=== PATIENT | female | born 1945 | race Caucasian/White ===

== ENCOUNTER 2019-08-20 05:50 | Day surgery (SDC) | payer OTHER ==
[~2019-08-20 05:50] MED LIST: CHILDREN'S ASPI81 MG PO; FOLIC PO; FORTAMET500 MG PO; GABAPENTIN400 MG PO; HUMULIN; VASOTEC10 MG PO
[2019-08-20] MEDS ORDERED: MACROBID 100 M100 MG PO (11:10)
[2019-08-20] MEDS ORDERED: ULTRACET PO (11:10)
== END 2019-08-20 13:20 | disposition home or self-care (01) ==
LOC: CIR.AMB 05:50
DX: N81.3 Complete uterovaginal prolapse (principal)